=== PATIENT | female | born 1960 | race Caucasian/White ===

== ENCOUNTER → 2023-04-11 | Outpatient (CLI) | payer SELFPAY ==
--- NOTE | 2023-04-11 08:06 | BI_ITS ---
MAMMOGRAPHY - BILATERAL SCREENING REASON FOR EXAM: Female, 62 years old. Routine annual screening examination. PERTINENT HISTORY: Non-contributory. TECHNIQUE: Digital bilateral breast titi (3D mammographic acquisition) in the CC and MLO projections. 2-D mediolateral oblique (MLO) and craniocaudad (CC) views of both breasts were obtained. CAD: Full Field Digital Mammography with Computer Added Detection was performed. COMPARISON: Comparison is made with prior outside examination dated June 26, 2017. FINDINGS: Breast Composition: The breasts are heterogeneously dense, which may obscure small masses. There are no dominant masses or suspicious calcifications. Stable small benign-appearing bilateral axillary lymph nodes. No other significant abnormalities are identified. There has been no significant change since the prior study. BI/SCRN MAMM (CAD)W/TITI BILAT IMPRESSION: Stable bilateral screening mammogram. Yearly follow-up mammogram recommended. (A) ASSESSMENT CATEGORY: BIRADS Category 2: Benign. A letter regarding these results will be sent to the patient by the facility within 30 days. Approximately 10% of breast cancers are not detected by mammography. A normal mammogram should not delay biopsy of a clinically suspicious abnormality. [id number] Electronically Signed: Walt Garcia MD at 10:38 EST ,
--- OUTSIDE RECORDS SUMMARY | 2023-04-11 08:12 | XMS RPT_ITS | CCD ---
Author Name Unknown Address [address] [place] [address] Organization [facility] Care Team Providers Care Gusset Ripper Name Role Phone Tavallaee, Duncan M Unavailable Unavailable Tavallaee, Duncan M Unavailable Unavailable Tavallaee, Duncan M Unavailable Unavailable Tavallaee, Duncan M Unavailable Unavailable Tavallaee, Duncan M Unavailable Unavailable Tavallaee, Duncan M Unavailable Unavailable Tavallaee, Duncan M Unavailable Unavailable Tavallaee, Duncan M Unavailable Unavailable Tavallaee, Duncan M Unavailable Unavailable Tavallaee, Duncan M Unavailable Unavailable Tavallaee, Duncan M Unavailable Unavailable Tavallaee, Duncan M Unavailable Unavailable Tavallaee, Duncan M Unavailable Unavailable SKY FUENTES Primary Care Unavailable SKY FUENTES Admitting Unavailable SKY FUENTES Attending Unavailable SKY FUENTES Primary Care Unavailable SKY FUENTES Admitting Unavailable SKY FUENTES Attending Unavailable SKY FUENTES Primary Care Unavailable SKY FUENTES Admitting Unavailable SKY FUENTES Attending Unavailable Unavailable Primary Care Provider Unavailabl e Medications Current Medications Medication Drug Class(es) Dates Sig (Normalized) Sig (Original) acetaminophen 325 mg oral tablet (2 sources) Start: 09-15-2020 take 2 tablets by mouth every six hours as needed for pain acetaminophen (AMINOFEN) 325 MG tablet Take 2 tablets by mouth every 6 hours as needed for Pain 60 tablet 3 09/15/2020 Active Completed/Discontinued Medications Medication Drug Class(es) Dates Sig (Normalized) Sig (Original) ceFAZolin 2000 mg injection (1 source) Cephalosporin Antibacterial Start: 09-15-2020 End: 09-15-2020 ceFAZolin (ANCEF) 2000 mg in dextrose 4 % 100 mL IVPB (premix) celecoxib 400 mg oral capsule (1 source) Nonsteroidal Anti-inflammatory Drug Start: 09-15-2020 End: 09-15-2020 celecoxib (CELEBREX) capsule 400 mg gabapentin 100 mg oral capsule (1 source) Anti-epileptic Agent Start: 09-15-2020 End: 09-15-2020 gabapentin (NEURONTIN) capsule 100 mg Problems Problem Classification Problem Date Documented Date Episodic/Chronic 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; Translations: [Other specified malignant neoplasm of skin, unspecified] Onset: 1 Episodic Other skin disorders (1 source) Disorder of the skin and subcutaneous tissue, unspecified; Translations: [Disorder of the skin and subcutaneous tissue, unspecified] Onset: 1 Episodic Results Test Name Value Interpretation Reference Range Facil ity Vital Signs Date Time Vital Sign Value Performing Clinician Faci lity 09-15-2020 15:00-0400 Diastolic blood pressure 63 mm[Hg] Danette Perez MD Work Phone: [facility] Work Phone: 09-15-2020 15:00-0400 Heart rate 75 /min Dnaette Perez MD Work Phone: [facility] Work Phone: 09-15-2020 15:00-0400 Respiratory rate 18 /min Danette Perez MD Work Phone: [facility] Work Phone: 09-15-2020 15:00-0400 SaO2% (BldA) [Mass fraction] 94 % Danette Perez MD Work Phone: [facility] Work Phone: 09-15-2020 15:00-0400 Systolic blood pressure 131 mm[Hg] Danette Perez MD Work Phone: [facility] Work Phone: 09-15-2020 14:15-0400 Body temperature 97.5 [degF] Danette Perez MD Work Phone: [facility] Work Phone: 09-15-2020 09:50-0400 Body height 162.6 cm Danette Perez MD Work Phone: [facility] Work Phone: 09-15-2020 09:50-0400 Body mass index (BMI) [Ratio] 30.73 kg/m2 Danette Perez MD Work Phone: [facility] Work Phone: 09-15-2020 09:50-0400 Body weight 81.19 kg Danette Perez MD Work Phone: [facility] Work Phone: 09-08-2020 15:15-0400 Heart rate 74 /min Danette Perez MD Work Phone: [facility] Work Phone: 09-08-2020 14:32-0400 Body temperature 97.11 [degF] Danette Perez MD Work Phone: [facility] Work Phone: 09-08-2020 14:32-0400 Diastolic blood pressure 50 mm[Hg] Danette Perez MD Work Phone: [facility] Work Phone: 09-08-2020 14:32-0400 Respiratory rate 15 /min Danette Perez MD Work Phone: [facility] Work Phone: 09-08-2020 14:32-0400 SaO2% (BldA) [Mass fraction] 99 % Danette Perez MD Work Phone: [facility] Work Phone: 09-08-2020 14:32-0400 Systolic blood pressure 120 mm[Hg] Danette Perez MD Work Phone: [facility] Work Phone: 09-08-2020 14:30-0400 Body height 162.6 cm Danette Perez MD Work Phone: [facility] Work Phone: 09-08-2020 14:30-0400 Body mass index (BMI) [Ratio] 30.73 kg/m2 Danette Perez MD Work Phone: [facility] Work Phone: 09-08-2020 14:30-0400 Body weight 81.19 kg Danette Perez MD Work Phone: [facility] Work Phone: Encounters Encounter Date Encounter Type Care Provider Facility Start: 09-15-2020 End: 09-15-2020 Subsequent hospital visit by physician Danette Perez MD Work Phone: [facility] General Surgery Procedures Date Procedure Procedure Detail Performing Clinician Start: 09-15-2020 OPERATIVE REPORT 3m Sca nning Start: 09-08-2020 Basic metabolic pane l calcium total Lakesha A Grope [employer] Work Phone: Plan of Treatment Date Care Activity Detail Author Start: 09-08-2021 Creatinine measurement Creatinine mo nitoring [facility] Work Phone: Start: 09-08-2021 Potassium monitoring Potassium monit oring [facility] Work Phone: Start: 11-22-2020 Influenza vaccination Flu vacc ine (Season Ended) [facility] Work Phone: Start: 09-15-2020 End: 09-15-2020 Patient encounter procedure 09/15/2020 Appointment General Surgery Danette Perez MD [address] [place] [address] [facility] Surgery Start: 2010 Screening for malign ant neoplasm of breast Breast cancer screen [facility] Work Phone: Start: 2010 Screening for malign ant neoplasm of colon Colon cancer screen colonoscopy [facility] Work Phone: Start: 2010 Shingles Vaccine (1 of 2) Shingles Vaccine (1 of 2) [facility] Work Phone: Start: 2000 Diabetes screen Diabetes screen [facility] Work Phone: Start: 2000 Lipid panel Lipid screen [facility] Work Phone: Start: 1981 Screening for malign ant neoplasm of cervix Cervical cancer screen [facility] Work Phone: Start: 05-27-1979 DTaP/Tdap/Td vaccine (1 - Tdap) DTaP/Tdap/Td vaccine (1 - Tdap) [facility] Work Phone: Start: 05-27-1975 HIV screening HIV screen [facility] Work Phone: Start: 1972 COVID-19 Vaccine (1) COVID-19 Vaccin e (1) [facility] Work Phone: Start: 1960 Hepatitis C screening Hepatitis C sc reen [facility] Work Phone: Blood glucose - POCT [facility] Work Phone: Payers Date Payer Category Payer Unknown Social History Date Type Detail Facility Start: 09-08-2020 End: 09-15-2020 Tobacco smoking status NHIS Never smoker [facility] Work Phone: Start: 09-08-2020 End: 09-15-2020 Tobacco use and exposure Never used [facility] Start: 09-08-2020 End: 09-15-2020 Alcohol intake Lifetime non-drinker (finding) [facility] Work Phone: Start: 09-08-2020 History SDOH Alcohol Frequency 1 [facility] Work Phone: Start: 1960 Sex Assigned At Not on file S [facility] Work Phone: Exposure to SARS-CoV -2 (event) Not sure [facility] History of Present illness Narrative 09-15-2020 Jailene Walker RN - 09/15/2020 3:45 PM EDT Note Date & Type Note Facility 09-15-2020 History of Present illness Narrative Discharge information given to the patient. Patient and family verbalized understanding of information. All questions were answered before discharge. Patient ambulated, denies dizziness or nausea. Tolerating PO fluids and crackers. Vital signs are stable. Patient has changed and is being discharged home in a wheelchair with valuables. documented in this encounter [facility] Work Phone: Hospital Discharge instructions 09-15-2020 Instructions Note Date & Type Note Facility 09-15-2020 Hospital Discharg e instructions Jailene Walker RN - 09/15/2020 Ok to take a shower tomorrow. Wear abdominal binder 14/10 except when showering. Remove ABDs PRN Leave paper tape in place. Record NITHIN output. Call [phone] to make a follow up appointment with Dr. Perez for ~1 week postop. Recovery Instructions Drain Care After surgery, there is a continued oozing and shedding of cells and bodily fluids at the surgical site. The surgical drain helps with removal of fluid which speeds healing and decreases the chance of infection. These instructions are a guide for properly caring for your drain: The drain is made of a piece of tubing with a collection bulb at the end. It is possible for clots to form in the tubing and block the outflow of fluids. To prevent this, it will be important for you to strip or milk the tubing occasionally. 1. To do this, wash hands, hold the tubing between your thumb and index finger at a point where the tubing exits the skin. 2. Squeeze your fingers together to pinch off the tubing. Position the fingers of the other hand in the same way just below the pinched off tubing. 3. While holding the first two fingers in place to prevent pulling on your skin, slide the bottom two fingers down the tubing. This pushes any clots into the collection bulb. 4. You might need to do this at several points down the tubing. This should be done two to three times a day to keep the tubing clear. 5. Clots of various colors are common. You might need to empty the drain two to three times a day (or more), depending on the amount of output. To empty, lift the pop-top on the collection bulb, and squeeze the fluid into a measuring cup with incremental markings (fl. oz. or cc). Record in your chart the amount of drainage, along with the time of the measurement. Once empty, squeeze the bulb until the sides of the bulb touch each other, and put the pop-top back in place to resume suction. You may shower with the drains in place. Attach them to an old belt or cloth strap to limit the amount of pulling on the skin and to avoid the risk of pulling then drain out accidentally. The drain will be removed in the office when the output is less than 30cc for 2 consecutive days (Please note this may be at the office s discretion). Accurately reporting your output will help the decision to pull or leave your drain in place. Try to record you morning, noon, and evening output at about the same time. Call the office if you notice any of these signs of infection: Spreading redness around the drain or incision Increased pain, swelling, or warmth over the surgical area. Cloudy discharge from the incision or drain site. Fever greater than 101 degrees If the drain falls out or is dislodged. Make sure to bring your drain output chart to every post-operative office visit. Drains are routinely not left in longer than 2 weeks. If the drainage is still greater than 30cc two weeks after surgery, please call the office. Date: Drain #1 Drain #2 Drain #3 Morning cc cc cc Noon cc cc cc Evening cc cc cc Total cc cc cc Date: Drain #1 Drain #2 Drain #3 Morning cc cc cc Noon cc cc cc Evening cc cc cc Total cc cc cc Date: Drain #1 Drain #2 Drain #3 Morning cc cc cc Noon cc cc cc Evening cc cc cc Total cc cc cc Date: Drain #1 Drain #2 Drain #3 Morning cc cc cc Noon cc cc cc Evening cc cc cc Total cc cc cc Date: Drain #1 Drain #2 Drain #3 Morning cc cc cc Noon cc cc cc Evening cc cc cc Total cc cc cc documented in this encounter [facility] Work Phone: Hospital Discharge instructions 09-08-2020 Instructions Note Date & Type Note Facility 09-08-2020 Hospital Discharg e instructions Lola Huizar RN - 09/08/2020 Shower with an antibacterial soap such as Dial or Safeguard. No makeup, deodorant, lotions, powder, body spray. Please bring your [facility] Surgical Information folder on the day of surgery. Please jazlyn the last dose taken (date and time ) on your Daily Medications List provided in your After Visit Summary. Please bring a photo ID and insurance information No smoking, no alcohol 24 hours prior to surgery. TAKE the following medications the morning of your surgery: PEPCID. You may take your prescription pain medications. You may take Tylenol (Acetaminophen) if needed for pain. No Motrin, Ibuprofen, or Advil 24 hours prior to surgery, or longer if instructed by your surgeon. No Aleve or Naprosyn 3 days prior to surgery, or longer if instructed by your surgeon. Do not take aspirin or aspirin containing products for 5 days before surgery, or longer if instructed by your surgeon. You will receive a reminder call the day before surgery with your Same Day Surgery arrival time. Follow all instructions given to you by Dr. PEREZ If you have specific questions, please call your surgeon. You may use the rehanger parking located at the main entrance on [address] [place] [address] and take the H elevator to the first floor for same day surgery. Take a left after exiting the elevator and check in at the desk. documented in this encounter [facility] Work Phone: Evaluation note Note Date & Type Note Facility documented in this encounter [facility] Work Phone: Summary Purpose Family History No Family History Records FoundNo Family History Records FoundNo Family History Records FoundNo Family History Records FoundNo Family History Records Found Advance Directives No Advanced Directives Records FoundLatest Code Status on File Code Status Date Activated Date Inactivated Comments Full Code 09/15/2020 9:41 AM Additional Source Comments INFORMATION SOURCE (unrecogn ized section and content) DATE CREATED AUTHOR AUTHOR'S ORGANIZ ATION [facility]/2020 [facility] DATE CREATED AUTHOR AUTHOR'S ORGANIZ ATION 09/01/2020 [facility] ([place]) DATE CREATED AUTHOR AUTHOR'S ORGANIZ ATION 10/05/2020 [facility] DATE CREATED AUTHOR AUTHOR'S ORGANIZ ATION 07/25/2021 [facility] dical Specialist Ordered Prescriptions (unrec ognized section and content) Scheduled Active and Recently Administ ered Medications (unrecognized section and content) Continuous Medication Order 09/13/2020 09/14/2020 09/15/2020 lactated ringers infusion Intravenous, at 50 mL/hr, CONTINUOUS, Starting on Fri09/15/20 at 1000, Upon admission to sameday - please start iv if patient does not have iv access. Use 500ml NS for patients on dialysis., Pre-op (day of surgery) 1011 (New Bag - Prov ider: Jailene Walker RN) PRN Medication Order 09/13/2020 09/14/2020 09/15/2020 0.9 % sodium chloride bolus 500 mL (6.16 mL/kg), Intravenous, at 250 mL/hr, Administer over 2 Hours, ONCE PRN, Nausea, Starting on Fri09/15/20 at 1409, For 1 dose, PACU only 0.9 % sodium chloride infusion 25 mL, Intravenous, at 100 mL/hr, PRN, If patient receiving piggyback infusions without ordered maintenance IV fluids or with frequent/long duration piggyback infusions, Starting on Fri09/15/20 at 0941, Administer at the same rate as the piggyback being infused., Pre-op (day of surgery) ALPRAZolam (NIRAVAM) dissolvable tablet 0.25 mg 0.25 mg, Oral, PRN, Anxiety, Starting on Fri09/15/20 at 0941, Pre-op (day of surgery) diphenhydrAMINE (BENADRYL) injection 12.5 mg 12.5 mg, Intravenous, ONCE PRN, Itching, Starting on Fri09/15/20 at 1409, For 1 dose, for use Sameday and, PACU only fentaNYL (SUBLIMAZE) injection 25 mcg 25 mcg, Intravenous, EVERY 5 MIN PRN, Pain Moderate (4-6), Starting on Fri09/15/20 at 1409, For 3 doses, Phase I and Phase II- Initial therapy for moderate pain (4-6). Restricted to a 50 minute time frame starting when the patient can verbally state their pain score. If after 2 doses the pain score does not decrease by more than one point, then go to secondary medication. Ifsecondary medications are utilized, do not return to initial therapy medications. SDS and, PACU only fentaNYL (SUBLIMAZE) injection 50 mcg 50 mcg, Intravenous, EVERY 5 MIN PRN, Pain Severe (7-10), Starting on Fri09/15/20 at 1409, For 3 doses, Phase I or Phase II- Initial therapy for severe pain (7-10). Restricted to a 50 minute time frame starting when the patient can verbally state their pain score. If after 2 doses the pain score does not decrease by more than one point, then go to secondary medication. If secondary medications are utilized, do not return to initial therapy medications.Sameday and, PACU only hydrALAZINE (APRESOLINE) injection 5 mg 5 mg, Intravenous, EVERY 10 MIN PRN, High Blood Pressure, Starting on Fri09/15/20 at 1409, PRN for SBP > 160 for 2 consecutive measurements, and if one of the following conditions is met: 1) If IV labetolol is ineffective. 2) If HR is under 60. 3) If patient has heart block, COPD or asthma. If both labetalol and hydralazine ineffective, notify anesthesiologist. for use Sameday and, PACU only HYDROmorphone (DILAUDID) injection 0.25 mg 0.25 mg, Intravenous, EVERY 5 MIN PRN, Pain Moderate (4-6), Starting on Fri09/15/20 at 1409, For 4 doses, Phase I - Secondary therapy to be used after initial therapy medication doses are ineffective (pain score does not decrease by more than 1 point). If secondary medications are utilized, do not return to initial therapy medications., PACU only HYDROmorphone (DILAUDID) injection 0.5 mg 0.5 mg, Intravenous, EVERY 5 MIN PRN, Pain Severe (7-10), Starting on Fri09/15/20 at 1409, For 4 doses, Phase I - Secondary therapy to be used after initial therapy medication doses are ineffective (pain score does not decrease by more than 1 point). If secondary medications are utilized, do not return to initial therapy medications., PACU only labetalol (NORMODYNE;TRANDATE) injection 5 mg 5 mg, Intravenous, EVERY 10 MIN PRN, High Blood Pressure, Starting on Fri09/15/20 at 1409, PRN for SBP >160 for 2 consecutive measurements, if HR is 60 or greater. If beta natasha is contraindicated (HR less than 60, heart block, COPD or asthma) use hydralazine IV order. for use Sameday and, PACU only lidocaine PF 1 % injection 1 mL 1 mL, Intradermal, ONCE PRN, IV start, Starting on Fri09/15/20 at 0941, For 1 dose, Pre-op (day of surgery) meperidine (DEMEROL) injection 12.5 mg 12.5 mg, Intravenous, EVERY 5 MIN PRN, Shivering, , Starting on Fri09/15/20 at 1409, May give every 5 minutes to max of 50mg. for use Sameday and, PACU only ondansetron (ZOFRAN) injection 4 mg 4 mg, Intravenous, ONCE PRN, Nausea, Starting on Fri09/15/20 at 1409, For 1 dose, Initial antiemetic therapy. For use sameday and, PACU only oxyCODONE (ROXICODONE) immediate release tablet 5 mg (COMPLETED) 5 mg, Oral, PRN, Pain Moderate (4-6), Starting on Fri09/15/20 at 1409, For 1 dose, PHASE II, PACU only 1424 (Given - Provid er: Jailene Walker RN) promethazine (PHENERGAN) injection 6.25 mg 6.25 mg, Intravenous, ONCE PRN, Nausea, Starting on Fri09/15/20 at 1409, For 1 dose, Caution if used IV:Check IV site for infiltrate prior to and during administration. Secondary antiemetic therapy. For use same and For IV administration, dilute to 10ml with normal saline. Must be administered over at least 10 minutes., PACU only sodium chloride flush 0.9 % injection 5-40 mL 5-40 mL, Intravenous, PRN, Line Care, Starting on Fri09/15/20 at 0941, For Line Patency: Peripheral IV = 5 mL; Midline or Central Line = 10 mL/lumen. If following IV push medication, administer flush at same rate as the IV push. Flush volume is determined by type of infusion therapy being given. For non-viscous solutions use: Peripheral IV = 5 mL Midline or Central Line = 10 mL/lumen For viscous solutions (i.e. blood components, parenteral nutrition, contrast media, or after obtaining blood sample) use: Peripheral IV = 10 mL Midline or Central Line = 20 mL/lumen, Pre-op (day of surgery) FOR RECORDS PERTAINING TO PATIENTS WHO ARE OR HAVE BEEN ENROLLED IN A CHEMICAL DEPENDENCY/SUBSTANCEABUSE PROGRAM, SOME INFORMATION MAY BE OMITTED. This clinical summary was aggregated from multiple sources. Caution should be exercised in using it in the provision of clinical care. This summary normalizes information from multiple sources, and as a consequence, information in this document may materially change the coding, format and clinical context of patient data. In addition, data may be omitted in some cases. CLINICAL DECISIONS SHOULD BE BASED ON THE PRIMARY CLINICAL RECORDS. [employer] [facility]. provides no warranty or guarantee of the accuracy or completeness of information in this document.
== END | disposition home or self-care (01) ==
LOC: OPBI 08:04
PROVIDERS: PCP Physician Assistant; Referring Provider Physician Assistant; Visit Provider Physician Assistant
DX: Z12.31 Encounter for screening mammogram for malignant neoplasm of breast (principal)
CPT/HCPCS: 77063; 77067